=== PATIENT | male | born 1960 | race Caucasian/White ===

== ENCOUNTER 2023-01-04 12:12 | Emergency (ER) | payer OTHER ==
[~2023-01-04] VITALS: Ht 188 cm; Wt 79.4 kg
[2023-01-04 12:30] VITALS: BP 125/73; TEMP 98.2
== END 2023-01-04 14:25 | disposition home or self-care (01) ==
LOC: ED 12:12
DX: H10.9 Unspecified conjunctivitis (principal)
CPT/HCPCS: 99282